=== PATIENT | female | born 1965 | race Caucasian/White ===

== ENCOUNTER 2017-06-01 14:36 | Emergency (ER) | payer OTHER ==
--- NOTE | 2017-06-01 15:05 | ERPHSYRPT ---
- History of Present Illness Time Seen by Provider: 06/01/17 14:45 Source: patient Exam Limitations: other Patient Subjective Stated Complaint: PT states "I drink every day.". PD states "she is here because her BAL is to high to go to [facility]" Triage Nursing Assessment: Pt alert and oriented X 3, skin pwd. pt ambulates with assistance, crying with occasional yelling, pt was brought in in handcuffs by PD screaming and hitting things. No apparent respiratory distress. Physician History: PATIENT BROUGHT INTO EMERGENCY BY POLICE DUE TO ELEVATION OF BLOOD ALCOHOL, TO HIGH TO TAKE TO PRISON. PATIENT DENIES COMPLAINTS, DRAINKS ALCOHOL DAILY. Timing/Duration: today Modifying Factors: Improves With: nothing Associated Symptoms: denies symptoms Allergies/Adverse Reactions: No Known Drug Allergies Allergy (Unverified 06/01/17 14:45) Hx Tetanus, Diphtheria Vaccination/Date Given: No Hx Influenza Vaccination/Date Given: No Hx Pneumococcal Vaccination/Date Given: No Immunizations Up to Date: No - Review of Systems Constitutional: No Symptoms, No Fever, No Chills Eyes: No Symptoms Ears, Nose, & Throat: No Symptoms Respiratory: No Symptoms, No Cough, No Dyspnea Cardiac: No Symptoms, No Chest Pain, No Edema, No Syncope Abdominal/Gastrointestinal: No Symptoms, No Abdominal Pain, No Nausea, No Vomiting, No Diarrhea Genitourinary Symptoms: No Symptoms, No Dysuria Musculoskeletal: No Symptoms, No Back Pain, No Neck Pain Skin: No Rash Neurological: No Dizziness, No Focal Weakness, No Sensory Changes Psychological: No Symptoms Endocrine: No Symptoms All Other Systems: Reviewed and Negative - Past Medical History Pertinent Past Medical History: Yes Neurological History: No Pertinent History ENT History: No Pertinent History Cardiac History: Hypertension Respiratory History: No Pertinent History Endocrine Medical History: No Pertinent History Musculoskeletal History: No Pertinent History GI Medical History: No Pertinent History History: No Pertinent History Psycho-Social History: No Pertinent History Female Reproductive Disorders: No Pertinent History - Past Surgical History Past Surgical History: Yes Neuro Surgical History: No Pertinent History Cardiac: No Pertinent History Respiratory: No Pertinent History Gastrointestinal: No Pertinent History Genitourinary: No Pertinent History Musculoskeletal: No Pertinent History Female Surgical History: Tubal Ligation - Social History Smoking Status: Current every day smoker How long have you smoked: years Exposure to second hand smoke: Yes Drug Use: methamphetamines Patient Lives Alone: No - Female History Hx Last Menstrual Period: 7 years ago Hx Now: No - Nursing Vital Signs Nursing Vital Signs: Initial Vital Signs Temperature 97.4 F 06/01/17 14:37 Pulse Rate 94 H 06/01/17 14:37 Respiratory Rate 18 06/01/17 14:37 Blood Pressure 160/91 06/01/17 14:37 O2 Sat by Pulse Oximetry 97 06/01/17 14:37 Pain Scale Pain Intensity 0 - Physical Exam General Appearance: no apparent distress, alert Eye Exam: PERRL/EOMI, eyes nml inspection Ears, Nose, Throat Exam: normal ENT inspection, TMs normal, pharynx normal, moist mucous membranes Neck Exam: normal inspection, non-tender, supple, full range of motion Respiratory Exam: normal breath sounds, lungs clear, No respiratory distress Cardiovascular Exam: regular rate/rhythm, normal heart sounds, normal peripheral pulses Gastrointestinal/Abdomen Exam: No tenderness, No mass Back Exam: normal inspection, normal range of motion, No CVA tenderness, No vertebral tenderness Extremity Exam: normal inspection, normal range of motion, pelvis stable Neurologic Exam: alert, oriented x 3, cooperative, normal mood/affect, nml cerebellar function, nml station & gait, sensation nml, No motor deficits Skin Exam: normal color, warm, dry, No rash Lymphatic Exam: No adenopathy SpO2 Interpretation: normal SpO2: 97 Oxygen Delivery: Room Air Ordered Tests: Active Orders 24 hr Category Date Time Status BMP Stat Lab 06/01/17 15:00 Completed CBC W DIFF Stat Lab 06/01/17 15:00 Completed ETHYL ALCOHOL Stat Lab 06/01/17 15:00 Completed MAGNESIUM Stat Lab 06/01/17 15:00 Completed Manual Differential NC Stat Lab 06/01/17 15:00 Completed Lab/Rad Data: Laboratory Result Diagrams 06/01/17 15:00 06/01/17 15:00 Laboratory Results 06/01/17 06/01/17 06/01/17 Range/Units 15:00 15:00 15:00 WBC 7.9 (4.0-10.5) K/mm3 RBC 4.88 (4.1-5.4) M/mm3 Hgb 15.3 (12.0-16.0) gm/dl Hct 47.7 H (35-47) % MCV 97.7 (78-100) fl MCH 31.4 (26-32) pg MCHC 32.1 (32-36) g/dl RDW 14.9 H (11.5-14.0) % Plt Count 260 (150-450) K/mm3 MPV 11.8 H (6-9.5) fl Sodium 144 (136-145) mEq/L Potassium 3.8 (3.5-5.1) mEq/L Chloride 107 (98-107) mEq/L Carbon Dioxide 24.8 (21-32) mEq/L Anion Gap 15.6 H (5-15) MEQ/L BUN 8 L (9-20) mg/dL Creatinine 0.72 (0.55-1.30) mg/dl Estimated GFR > 60 ML/MIN Glucose 120 H (70-110) MG/DL Calcium 9.0 (8.5-10.1) mg/dL Magnesium 2.0 (1.8-2.4) mg/dL Ethyl Alcohol 0.320 H* (0.00-0.01) % - Progress Progress: improved Progress Note: 06/01/17 17:[address], ALERT APPROPRIATE, SPEECH NONSLURRED Counseled pt/family regarding: lab results, diagnosis - Departure Time of Disposition: 17:05 Departure Disposition: Prison/Longterm Clinical Impression: ACUTE ALCOHOL INTOXICATION Condition: Stable Critical Care Time: No Referrals: ADOLFO DOMINIQUE [Primary Care Provider] - Additional Instructions: CONSULT YOUR PRIMARY CARE PROVIDER FOR FOLLOWUP.
[2017-06-01 15:10] LABS: Granulocyte Absolute (ANC) 6.23 (1.4-6.9); Hematocrit 47.7 % (35-47); Hemoglobin 15.3 gm/dl (12.0-16.0); Mean Cell Volume 97.7 fl (78-100); Mean Corpuscular Hemoglobin 31.4 pg (26-32); Mean Corpuscular Hgb Concent. 32.1 g/dl (32-36); Mean Platelet Volume 11.8 fl (6-9.5); Platelet Count 260 K/mm3 (150-450); Red Blood Count 4.88 M/mm3 (4.1-5.4); Red Cell Distribution Width 14.9 % (11.5-14.0); White Blood Count 7.9 K/mm3 (4.0-10.5)
[2017-06-01 15:38] LABS: ANION GAP 15.6 MEQ/L (5-15); BLOOD UREA NITROGEN 8 mg/dL (9-20); CHLORIDE 107 mEq/L (98-107); Carbon Dioxide 24.8 mEq/L (21-32); Creatinine 1 0.72 mg/dl (0.55-1.30); EST GLOMERULAR FILTRATION RATE > 60 ML/MIN; Glucose 120 MG/DL (70-110); Potassium 3.8 mEq/L (3.5-5.1); SODIUM 144 mEq/L (136-145)
[2017-06-01 17:08] VITALS: BP 158/70; PULSE 83
[2017-06-01 17:10] VITALS: O2SAT 97
[2017-06-02 02:35] LABS: Lymphocytes 15 % (24-44); Monocyte 7 % (0.0-12.0); Neutrophils 78 % (36.0-66.0); Platelet Estimate NORMAL (NORMAL); Total Cells Counted 100
== END 2017-06-01 17:17 | disposition home or self-care (01) ==
LOC: ED 14:36
DX: F10.129 Alcohol abuse with intoxication, unspecified (principal)
CPT/HCPCS: 36000; 36415; 80048; 83735; 85025; 99284; G0481

== ENCOUNTER 2019-03-20 14:59 | Emergency (ER) | payer OTHER ==
--- NOTE | 2019-03-20 15:30 | ERPHSYRPT ---
- History of Present Illness Time Seen by Provider: 03/20/19 15:30 Allergies/Adverse Reactions: No Known Drug Allergies Allergy (Verified 03/20/19 15:21) Hx Tetanus, Diphtheria Vaccination/Date Given: No Hx Influenza Vaccination/Date Given: No Hx Pneumococcal Vaccination/Date Given: No - Past Medical History Pertinent Past Medical History: Yes Neurological History: No Pertinent History ENT History: No Pertinent History Cardiac History: Hypertension Respiratory History: No Pertinent History Endocrine Medical History: No Pertinent History Musculoskeletal History: No Pertinent History GI Medical History: No Pertinent History History: No Pertinent History Psycho-Social History: No Pertinent History Female Reproductive Disorders: No Pertinent History - Past Surgical History Past Surgical History: Yes Neuro Surgical History: No Pertinent History Cardiac: No Pertinent History Respiratory: No Pertinent History Gastrointestinal: No Pertinent History Genitourinary: No Pertinent History Musculoskeletal: No Pertinent History Female Surgical History: Tubal Ligation - Social History Smoking Status: Current every day smoker How long have you smoked: years Exposure to second hand smoke: Yes Drug Use: methamphetamines Patient Lives Alone: No
--- NOTE | 2019-03-20 15:31 | ERPHSYRPT ---
- History of Present Illness Time Seen by Provider: 03/20/19 15:30 Source: patient Exam Limitations: no limitations Patient Subjective Stated Complaint: here for drug screen Physician History: pt. sent over by [facility] for dryg screen pt. alcohol abuser, has not taken any x 1 week- denies withdrawal s/s - known to have unrx HTN- states she needs to call pcp and get meds refilled - denies shakes/sweats./chest pain/sob/use of street drugs/suicidal or homicidal ideation Timing/Duration: today Severity of Symptoms-Max: none Severity of Symptoms-Current: none (no) Associated Symptoms: denies symptoms Previous symptoms: no prior history Allergies/Adverse Reactions: No Known Drug Allergies Allergy (Verified 03/20/19 15:21) Hx Tetanus, Diphtheria Vaccination/Date Given: No Hx Influenza Vaccination/Date Given: No Hx Pneumococcal Vaccination/Date Given: No - Past Medical History Pertinent Past Medical History: Yes Neurological History: No Pertinent History ENT History: No Pertinent History Cardiac History: Hypertension Respiratory History: No Pertinent History Endocrine Medical History: No Pertinent History Musculoskeletal History: No Pertinent History GI Medical History: No Pertinent History History: No Pertinent History Psycho-Social History: No Pertinent History Female Reproductive Disorders: No Pertinent History - Past Surgical History Past Surgical History: Yes Neuro Surgical History: No Pertinent History Cardiac: No Pertinent History Respiratory: No Pertinent History Gastrointestinal: No Pertinent History Genitourinary: No Pertinent History Musculoskeletal: No Pertinent History Female Surgical History: Tubal Ligation - Social History Smoking Status: Current every day smoker How long have you smoked: years Exposure to second hand smoke: Yes Drug Use: methamphetamines Patient Lives Alone: No - Review of Systems Constitutional: No Fever, No Chills Eyes: No Symptoms Ears, Nose, & Throat: No Symptoms Respiratory: No Cough, No Dyspnea Cardiac: No Chest Pain, No Edema, No Syncope Abdominal/Gastrointestinal: No Abdominal Pain, No Nausea, No Vomiting, No Diarrhea Genitourinary Symptoms: No Dysuria Musculoskeletal: No Back Pain, No Neck Pain Skin: No Rash Neurological: No Dizziness, No Focal Weakness, No Sensory Changes Psychological: No Symptoms Endocrine: No Symptoms All Other Systems: Reviewed and Negative - Nursing Vital Signs Nursing Vital Signs: Initial Vital Signs Temperature 98.0 F 03/20/19 15:23 Pulse Rate 80 03/20/19 15:23 Respiratory Rate 18 03/20/19 15:23 Blood Pressure 196/120 03/20/19 15:23 O2 Sat by Pulse Oximetry 96 03/20/19 15:23 Pain Scale Pain Intensity 0 - Physical Exam General Appearance: no apparent distress Eyes, Ears, Nose, Throat Exam: normal ENT inspection, moist mucous membranes Neck Exam: normal inspection, non-tender, supple Respiratory Exam: normal breath sounds, lungs clear, No respiratory distress Cardiovascular Exam: regular rate/rhythm, No edema Gastrointestinal/Abdominal Exam: soft, No tenderness, No distention Extremities Exam: normal inspection, normal range of motion, No evidence of injury, No edema Current Suicidality: denies suicide plan Neurological Exam: alert, 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, oriented x 3 Skin Exam: normal color, warm, dry, No rash Ordered Tests: Active Orders 24 hr Category Date Time Status Clean Catch Urine Specimen STAT Care 03/20/19 15:56 Active ETHYL ALCOHOL Stat Lab 03/20/19 16:05 Completed Urine Triage Profile Stat Lab 03/20/19 16:10 Completed Medication Summary Discontinued Medications Generic Name Dose Route Start Last Admin Trade Name Anton PRN Reason Stop Dose Admin Clonidine 0.1 mg 03/20/19 15:58 03/20/19 16:04 Catapres 0.1 Mg PO 03/20/19 15:59 0.1 mg STAT ONE Administration Clonidine Confirm 03/20/19 16:04 Catapres 0.1 Mg Administered 03/20/19 16:05 Dose 0.1 mg .ROUTE .STK-MED ONE Lab/Rad Data: Laboratory Results 03/20/19 03/20/19 Range/Units 16:10 16:05 Urine Opiates Level NEGATIVE (NEGATIVE) Ur Methadone NEGATIVE (NEGATIVE) Urine Barbiturates NEGATIVE (NEGATIVE) Ur Phencyclidine (PCP) NEGATIVE (NEGATIVE) Urine Amphetamine NEGATIVE (NEGATIVE) U Benzodiazepine Level NEGATIVE (NEGATIVE) Urine Cocaine NEGATIVE (NEGATIVE) Urine Marijuana (THC) NEGATIVE (NEGATIVE) Ethyl Alcohol < 10 (0-10) mg/dL - Progress Progress Note: 03/20/19 20:59 pt. seen and examined 03/20/19 20:59 uds negative, alcohol <10, pt not SI/HI pt exhibits no withdrawal s/s rx doen for HTN, advised to f/u with pcp [facility] informed by my nurse - Departure Departure Disposition: Home Clinical Impression: Alcohol abuse Condition: Stable Critical Care Time: No Referrals: Provider,Unknown [Primary Care Provider] - Instructions: Alcohol Withdrawal (DC) Additional Instructions: Discharge/Care Plan KALYAN GARCIA was seen on 03/20/19 in the Emergency Room. The patient was counseled regarding Diagnosis,Lab results, Imaging studies, need for follow up and when to return to the Emergency Room. Prescriptions given: Discharge Note I have spoken with the patient and/or caregivers. I have explained the patient' s condition, diagnosis and treatment plan based on the information available to me at this time. I have answered the patient's and/or caregiver's questions and addressed any concerns. The patient and/or caregivers have as good understanding of the patient's diagnosis, condition and treatment plan as can be expected at this point. The vital signs have been stable. The patient's condition is stable and appropriate for discharge from the emergency department. The patient will pursue further outpatient evaluation with the primary care physician or other designated or consulting physician as outlined in the discharge instructions. The patient and/or caregivers are agreeable to this plan of care and follow-up instructions have been explained in detail. The patient and/or caregivers have received these instruction. The patient/and or caregivers are aware that any significant change in condition or worsening of symptoms should prompt an immediate return to this or the closest emergency department or call 911.
[2019-03-20] MEDS ORDERED: Catapres 0.1 MG PO ONE (15:58)
[2019-03-20 16:04] VITALS: BP 163/114; PULSE 67; O2SAT 94
[2019-03-20] MEDS ORDERED: Catapres 0.1 MG ONE (16:04)
[2019-03-20 16:22] LABS: Amphetamine,Urine NEGATIVE (NEGATIVE); Barbiturate,Urine NEGATIVE (NEGATIVE); Benzodiazepine,Urine NEGATIVE (NEGATIVE); Cocaine,Urine NEGATIVE (NEGATIVE); Methadone,Urine NEGATIVE (NEGATIVE); Opiate,Urine NEGATIVE (NEGATIVE); PCP,Urine NEGATIVE (NEGATIVE); THC,Urine NEGATIVE (NEGATIVE)
== END 2019-03-20 16:20 | disposition home or self-care (01) ==
LOC: ED 14:59
DX: F10.10 Alcohol abuse, uncomplicated (principal); I10 Essential (primary) hypertension
CPT/HCPCS: 36415; 80307; 99284; G0480; A9270-GY